=== PATIENT | female | born 1985 | race American Indian/Alaskan Native ===

== ENCOUNTER 2021-12-20 15:57 | Emergency (ER) | payer SELFPAY | END 2021-12-20 17:40 | disposition home or self-care (01) | LOC: JD.ED 15:57 | DX: K04.7 Periapical abscess without sinus (principal); K02.9 Dental caries, unspecified; F17.210 Nicotine dependence, cigarettes, uncomplicated; Z86.16 Personal history of COVID-19 | CPT/HCPCS: 99282 ==